=== PATIENT | female | born 1930 | race Two or more races ===

== ENCOUNTER 2017-08-11 22:14 | Inpatient (IN) | payer MEDICARE ==
[2017-08-11 23:01] LABS: CLARITY,URINE CLOUDY; COLOR,URINE RED; GLUCOSE,URINE NEGATIVE (NEG); PH,URINE 6.5; PROTEIN,URINE >=300 mg/dL (NEG-TRACE)
[2017-08-11 23:08] LABS: RBC,URINE TNTC /HPF (0-2); WBC,URINE >40 /HPF (0-4)
[2017-08-11 23:09] LABS: BACTERIA,URINE FEW /HPF (0-FEW)
[2017-08-11 23:24] LABS: ADD MAN DIFF? NO
[2017-08-11 23:26] LABS: BASO # 0.1 x10^3/uL (0.0-0.2); BASO % 1 % (0-3); EOS # 0.1 x10^3/uL (0.0-0.7); EOS % 1 % (0-3); HEMATOCRIT 36.1 % (36.0-47.0); LYMPH # 1.5 x10^3/uL (1.0-4.8); LYMPH % 14 % (24-48); MEAN CORPUSCULAR HEMOGLOBIN 28 pg (25-35); MEAN CORPUSCULAR HGB CONC 33 g/dL (31-37); MEAN CORPUSCULAR VOLUME 86 fL (79-100); MONO # 0.8 x10^3/uL (0.0-1.1); MONO % 8 % (0-9); NEUT # 8.2 x10^3uL (1.8-7.7); NEUT % 77 % (31-73); PLATELET COUNT 210 x10^3/uL (140-400); RED BLOOD COUNT 4.22 x10^6/uL (3.50-5.40); RED CELL DISTRIBUTION WIDTH 14.7 % (11.5-14.5); WHITE BLOOD COUNT 10.7 x10^3/uL (4.0-11.0)
[2017-08-11 23:33] LABS: ANION GAP 10 (6-14); BLOOD UREA NITROGEN 17 mg/dL (7-20); BUN/CREATININE RATIO 21 (6-20); CALCIUM 8.7 mg/dL (8.5-10.1); CARBON DIOXIDE 27 mmol/L (21-32); CHLORIDE 98 mmol/L (98-107); CREATININE 0.8 mg/dL (0.6-1.0); GLUCOSE 135 mg/dL (70-99); POTASSIUM 3.6 mmol/L (3.5-5.1); SODIUM 135 mmol/L (136-145)
[2017-08-11 23:35] LABS: PROTHROMBIN TIME PATIENT 12.8 SEC (11.7-14.0)
[2017-08-11 23:38] LABS: ALBUMIN 3.2 g/dL (3.4-5.0); ALK PHOS 51 U/L (46-116); ALT (SGPT) 30 U/L (14-59); AST (SGOT) 26 U/L (15-37); TOTAL BILIRUBIN 0.4 mg/dL (0.2-1.0); TOTAL PROTEIN 6.5 g/dL (6.4-8.2)
[2017-08-11] MEDS: ONDANSETRON PF 4 MG/2 ML VIAL. IV (23:41)
[2017-08-11] MEDS: IV NORMAL SALINE 1000ML BAG 1,000 ML IV (23:41)
[2017-08-12] MEDS: IV NORMAL SALINE 1000ML BAG 1,000 ML IV (00:56)
[2017-08-12 02:34] LABS: ANION GAP 8 (6-14); BLOOD UREA NITROGEN 13 mg/dL (7-20); CALCIUM 8.2 mg/dL (8.5-10.1); CARBON DIOXIDE 24 mmol/L (21-32); CHLORIDE 111 mmol/L (98-107); CREATININE 0.6 mg/dL (0.6-1.0); GFR 94.8; GLUCOSE 115 mg/dL (70-99); POTASSIUM 4.3 mmol/L (3.5-5.1); SODIUM 143 mmol/L (136-145)
[2017-08-12] MEDS ORDERED: ONDANSETRON PF 4 MG/2 ML VIAL. IV ×2 (09:00)
[2017-08-12] MEDS ORDERED: CONTRAST GIVEN MC (10:15)
[2017-08-12] MEDS: IOHEXOL 300 MG/ML 100ML VIAL. IV (10:34)
[2017-08-12] MEDS: FLUTICASONE 50MCG/NASAL SPRAY 16GM BOTTLE. NS (11:26)
[2017-08-12] MEDS: OMEGA-3 FATTY ACIDS/FISH OIL 1,000 MG CAPSULE. PO (11:26)
[2017-08-12] MEDS: CALCIUM CARBONATE 500 MG TABLET PO ×2 (11:26→17:14)
[2017-08-12] MEDS: LISINOPRIL 5 MG TABLET. PO (11:27)
[2017-08-12] MEDS: MULTIVITAMIN with MINERAL TABLET. PO (11:27)
[2017-08-12] MEDS: METOPROLOL SUCC 24HR ER 25 MG TAB.ER.24H. PO (11:28)
[2017-08-12] MEDS: CYANOCOBALAMIN (VITAMIN B-12) 1,000 MCG TABLET. PO (11:28)
[2017-08-12] MEDS: TAMSULOSIN 0.4 MG CAP.ER.24H. PO (11:29)
[2017-08-12] MEDS: CIPROFLOXACIN 200MG PREMIX 100 ML IV ×2 (11:29→20:22)
[2017-08-12] MEDS: SIMVASTATIN 20 MG TABLET PO (20:20)
[2017-08-12] MEDS: MONTELUKAST SODIUM 10 MG TABLET. PO (20:20)
[2017-08-12] MEDS: CETIRIZINE HCL 10 MG TABLET. PO (20:20)
[2017-08-13 05:13] LABS: ADD MAN DIFF? NO
[2017-08-13 05:22] LABS: BASO % 1 % (0-3); EOS # 0.1 x10^3/uL (0.0-0.7); EOS % 2 % (0-3); HEMATOCRIT 30.7 % (36.0-47.0); HEMOGLOBIN 10.1 g/dL (12.0-15.5); LYMPH # 2.1 x10^3/uL (1.0-4.8); LYMPH % 28 % (24-48); MEAN CORPUSCULAR HEMOGLOBIN 29 pg (25-35); MEAN CORPUSCULAR HGB CONC 33 g/dL (31-37); MEAN CORPUSCULAR VOLUME 86 fL (79-100); MONO # 0.8 x10^3/uL (0.0-1.1); MONO % 10 % (0-9); NEUT # 4.6 x10^3uL (1.8-7.7); NEUT % 60 % (31-73); PLATELET COUNT 164 x10^3/uL (140-400); RED BLOOD COUNT 3.56 x10^6/uL (3.50-5.40); RED CELL DISTRIBUTION WIDTH 14.9 % (11.5-14.5); WHITE BLOOD COUNT 7.7 x10^3/uL (4.0-11.0)
[2017-08-13 05:52] LABS: ANION GAP 7 (6-14); BLOOD UREA NITROGEN 9 mg/dL (7-20); CALCIUM 8.7 mg/dL (8.5-10.1); CARBON DIOXIDE 27 mmol/L (21-32); CHLORIDE 106 mmol/L (98-107); CREATININE 0.7 mg/dL (0.6-1.0); GFR 79.3; GLUCOSE 93 mg/dL (70-99); POTASSIUM 3.6 mmol/L (3.5-5.1); SODIUM 140 mmol/L (136-145)
[2017-08-13] MEDS: TAMSULOSIN 0.4 MG CAP.ER.24H. PO (08:50)
[2017-08-13] MEDS: LISINOPRIL 5 MG TABLET. PO (08:50)
[2017-08-13] MEDS: CALCIUM CARBONATE 500 MG TABLET PO ×2 (08:51→16:48)
[2017-08-13] MEDS: OMEGA-3 FATTY ACIDS/FISH OIL 1,000 MG CAPSULE. PO (08:51)
[2017-08-13] MEDS: CYANOCOBALAMIN (VITAMIN B-12) 1,000 MCG TABLET. PO (08:51)
[2017-08-13] MEDS: MULTIVITAMIN with MINERAL TABLET. PO (08:51)
[2017-08-13] MEDS: FLUTICASONE 50MCG/NASAL SPRAY 16GM BOTTLE. NS (08:52)
[2017-08-13] MEDS: CIPROFLOXACIN 200MG PREMIX 100 ML IV ×2 (08:52→20:08)
[2017-08-13] MEDS: METOPROLOL SUCC 24HR ER 25 MG TAB.ER.24H. PO (08:53)
[2017-08-13] MEDS ORDERED: VANCOMYCIN PER PHARMACY MC (09:30)
[2017-08-13] MEDS ORDERED: VANCOMYCIN 1 GM in IV DEXTROSE 5% 250 ML IV (09:30)
[2017-08-13] MEDS: IV NORMAL SALINE 500ML BAG 500 ML IV (09:45)
[2017-08-13] MEDS: VANCOMYCIN 1.25 GM in IV DEXTROSE 5 %-0.2 % NACL 250 ML IV (10:00)
[2017-08-13] MEDS: IV NORMAL SALINE 1000ML BAG 1,000 ML IV (10:00)
[2017-08-13] MEDS ORDERED: DEXTROSE 50% 25 GM / 50ML DISP.SYRIN. IV (11:45)
[2017-08-13] MEDS ORDERED: INSULIN ASPART 300 UNITS/3 ML INSULN.PEN SQ (12:00)
[2017-08-13] MEDS: CETIRIZINE HCL 10 MG TABLET. PO (20:08)
[2017-08-13] MEDS: MONTELUKAST SODIUM 10 MG TABLET. PO (20:08)
[2017-08-13] MEDS: SIMVASTATIN 20 MG TABLET PO (20:08)
[2017-08-14] MEDS: LISINOPRIL 5 MG TABLET. PO (09:07)
[2017-08-14] MEDS: OMEGA-3 FATTY ACIDS/FISH OIL 1,000 MG CAPSULE. PO (09:07)
[2017-08-14] MEDS: CALCIUM CARBONATE 500 MG TABLET PO ×2 (09:07→17:45)
[2017-08-14] MEDS: TAMSULOSIN 0.4 MG CAP.ER.24H. PO (09:07)
[2017-08-14] MEDS: MULTIVITAMIN with MINERAL TABLET. PO (09:08)
[2017-08-14] MEDS: METOPROLOL SUCC 24HR ER 25 MG TAB.ER.24H. PO (09:08)
[2017-08-14] MEDS: CYANOCOBALAMIN (VITAMIN B-12) 1,000 MCG TABLET. PO (09:08)
[2017-08-14] MEDS: FLUTICASONE 50MCG/NASAL SPRAY 16GM BOTTLE. NS (09:13)
[2017-08-14] MEDS: CIPROFLOXACIN 200MG PREMIX 100 ML IV (09:13)
[2017-08-14] MEDS: SIMVASTATIN 20 MG TABLET PO (21:33)
[2017-08-14] MEDS: CETIRIZINE HCL 10 MG TABLET. PO (21:33)
[2017-08-14] MEDS: MONTELUKAST SODIUM 10 MG TABLET. PO (21:33)
[2017-08-15 05:09] LABS: ADD MAN DIFF? NO
[2017-08-15 05:21] LABS: BASO # 0.1 x10^3/uL (0.0-0.2); BASO % 1 % (0-3); EOS # 0.2 x10^3/uL (0.0-0.7); EOS % 3 % (0-3); HEMATOCRIT 30.3 % (36.0-47.0); LYMPH % 30 % (24-48); MEAN CORPUSCULAR HEMOGLOBIN 29 pg (25-35); MEAN CORPUSCULAR HGB CONC 33 g/dL (31-37); MEAN CORPUSCULAR VOLUME 86 fL (79-100); MONO # 0.7 x10^3/uL (0.0-1.1); MONO % 11 % (0-9); NEUT # 3.8 x10^3uL (1.8-7.7); NEUT % 56 % (31-73); PLATELET COUNT 174 x10^3/uL (140-400); RED CELL DISTRIBUTION WIDTH 15.1 % (11.5-14.5); WHITE BLOOD COUNT 6.8 x10^3/uL (4.0-11.0)
[2017-08-15 05:39] LABS: ANION GAP 5 (6-14); BLOOD UREA NITROGEN 16 mg/dL (7-20); CALCIUM 8.9 mg/dL (8.5-10.1); CARBON DIOXIDE 28 mmol/L (21-32); CHLORIDE 107 mmol/L (98-107); CREATININE 0.7 mg/dL (0.6-1.0); GFR 79.3; GLUCOSE 90 mg/dL (70-99); POTASSIUM 4.6 mmol/L (3.5-5.1); SODIUM 140 mmol/L (136-145)
[2017-08-15] MEDS: MULTIVITAMIN with MINERAL TABLET. PO (09:29)
[2017-08-15] MEDS: OMEGA-3 FATTY ACIDS/FISH OIL 1,000 MG CAPSULE. PO (09:29)
[2017-08-15] MEDS: FLUTICASONE 50MCG/NASAL SPRAY 16GM BOTTLE. NS (09:29)
[2017-08-15] MEDS: LISINOPRIL 5 MG TABLET. PO (09:29)
[2017-08-15] MEDS: CALCIUM CARBONATE 500 MG TABLET PO ×2 (09:30→17:17)
[2017-08-15] MEDS: CYANOCOBALAMIN (VITAMIN B-12) 1,000 MCG TABLET. PO (09:30)
[2017-08-15] MEDS: TAMSULOSIN 0.4 MG CAP.ER.24H. PO (09:31)
[2017-08-15] MEDS: METOPROLOL SUCC 24HR ER 25 MG TAB.ER.24H. PO (09:31)
== END 2017-08-15 17:50 | disposition home or self-care (01) | DRG 694 ==
LOC: 5 NORTH 23:00 → ER 22:14
DX: N13.2 Hydronephrosis with renal and ureteral calculous obstruction (principal); N30.01 Acute cystitis with hematuria; R78.81 Bacteremia; D62 Acute posthemorrhagic anemia; E87.1 Hypo-osmolality and hyponatremia; B96.89 Other specified bacterial agents as the cause of diseases classified elsewhere; K57.90 Diverticulosis of intestine, part unspecified, without perforation or abscess without bleeding; E53.8 Deficiency of other specified B group vitamins; I12.9 Hypertensive chronic kidney disease with stage 1 through stage 4 chronic kidney disease, or unspecified chronic kidney disease; J42 Unspecified chronic bronchitis; K43.9 Ventral hernia without obstruction or gangrene; M85.80 Other specified disorders of bone density and structure, unspecified site; J30.9 Allergic rhinitis, unspecified; H26.9 Unspecified cataract; N18.2 Chronic kidney disease, stage 2 (mild); Z80.7 Family history of other malignant neoplasms of lymphoid, hematopoietic and related tissues; Z82.49 Family history of ischemic heart disease and other diseases of the circulatory system; Z83.3 Family history of diabetes mellitus; Z85.42 Personal history of malignant neoplasm of other parts of uterus; Z87.442 Personal history of urinary calculi; Z88.0 Allergy status to penicillin; Z90.49 Acquired absence of other specified parts of digestive tract; Z90.710 Acquired absence of both cervix and uterus; Z92.3 Personal history of irradiation
CPT/HCPCS: 36415; 74178; 76770; 80048; 80053; 81001; 85025; 85610; 87040; 87086; 87205; 88112; J0690; J0744; J0878; J1815; J2405; J7030; J7040; Q9967

== ENCOUNTER 2017-09-21 06:45 | Day surgery (SDC) | payer MEDICARE ==
[~2017-09-21 06:45] MED LIST: LIDOCAINE 2% JELLY 6ML IN APPLICATOR.
[2017-09-21] MEDS ORDERED: MORPHINE SULFATE 4 MG/ML DISP.SYRIN. IV (07:00)
[2017-09-21] MEDS ORDERED: ONDANSETRON PF 4 MG/2 ML VIAL. IV (07:00)
[2017-09-21] MEDS ORDERED: LIDOCAINE 1% PF 2 ML VIAL. ID (07:00)
[2017-09-21] MEDS ORDERED: PROCHLORPERAZINE 10 MG/2 ML VIAL. IV (07:00)
[2017-09-21] MEDS ORDERED: HYDROmorphone 2 MG/ML VIAL IV (07:00)
[2017-09-21] MEDS ORDERED: fentaNYL PF VIAL 100 MCG/2 ML VIAL IV ×2 (07:00)
[2017-09-21] MEDS: IV RINGERS,LACTATED 1000ML 1,000 ML IV (07:40)
[2017-09-21] MEDS ORDERED: fentaNYL PF VIAL 100 MCG/2 ML VIAL (08:05)
[2017-09-21] MEDS ORDERED: DEXAMETHASONE SOD PHOS 20 MG/5 ML VIAL. (08:06)
[2017-09-21] MEDS ORDERED: SEVOFLURANE 31 TO 60 MINUTES. IH (08:06)
[2017-09-21] MEDS ORDERED: PROPOFOL 20 ML IV (08:06)
[2017-09-21] MEDS ORDERED: ONDANSETRON PF 4 MG/2 ML VIAL. (08:06)
[2017-09-21] MEDS ORDERED: SEVOFLURANE 16 TO 30 MINUTES. IH (08:06)
[2017-09-21] MEDS: CIPROFLOXACIN 400MG PREMIX 200 ML IV (08:22)
[2017-09-21] MEDS: HYOSCYAMINE 0.125 MG TAB.RAPDIS PO (10:45)
== END 2017-09-21 10:59 | disposition home or self-care (01) ==
LOC: SURG 06:45
DX: N32.9 Bladder disorder, unspecified (principal); R31.0 Gross hematuria; N30.20 Other chronic cystitis without hematuria; I10 Essential (primary) hypertension; Z98.890 Other specified postprocedural states; Z88.0 Allergy status to penicillin; Z79.899 Other long term (current) drug therapy; Z87.442 Personal history of urinary calculi; Z90.710 Acquired absence of both cervix and uterus
CPT/HCPCS: 52234; J0744; J1100; J2405; J2704; J3010; J7120

== ENCOUNTER → 2017-10-18 | Outpatient (CLI) | payer MEDICARE | END | disposition home or self-care (01) | LOC: PMGWOUND 13:21 | DX: N30.41 Irradiation cystitis with hematuria (principal); J45.909 Unspecified asthma, uncomplicated; I12.9 Hypertensive chronic kidney disease with stage 1 through stage 4 chronic kidney disease, or unspecified chronic kidney disease; N18.9 Chronic kidney disease, unspecified; Z90.710 Acquired absence of both cervix and uterus | CPT/HCPCS: G0463 ==